=== PATIENT | male | born 1955 | race Caucasian/White ===

== ENCOUNTER → 2017-06-14 | Outpatient (CLI) | payer BC | LOC: M RAD 15:12 | DX: H72.02 Central perforation of tympanic membrane, left ear (principal); H74.8X1 Other specified disorders of right middle ear and mastoid | CPT/HCPCS: 70480 ==

== ENCOUNTER → 2021-09-22 | Outpatient (REF) | payer BC, MEDICARE | LOC: M SFHCDERM 17:12 | PROVIDERS: ATTEND Dermatology | DX: L82.1 Other seborrheic keratosis (principal) ==

== ENCOUNTER → 2022-09-22 | Outpatient (REF) | payer MEDICARE, BC | LOC: M SFHCDERM 14:06 | PROVIDERS: ATTEND Nurse Practitioner Family | DX: C44.329 Squamous cell carcinoma of skin of other parts of face (principal); L82.1 Other seborrheic keratosis ==

== ENCOUNTER → 2023-03-17 | Outpatient (REF) | payer MEDICARE, BC | LOC: M SFHCDERM 17:50 | PROVIDERS: ATTEND Nurse Practitioner Family | DX: L57.0 Actinic keratosis (principal) ==

== ENCOUNTER → 2024-05-10 | Outpatient (CLI) | payer MEDICARE | LOC: M WUC 11:13 | PROVIDERS: ATTEND Physician Assistant Medical | DX: M79.671 Pain in right foot (principal) ==

== ENCOUNTER → 2025-04-18 | Outpatient (REF) | payer MEDICARE | LOC: M SFHCDERM 17:33 | PROVIDERS: ATTEND Nurse Practitioner Family | DX: C44.41 Basal cell carcinoma of skin of scalp and neck (principal) ==